=== PATIENT | female | born 1935 | race American Indian/Alaskan Native ===

== ENCOUNTER 2021-04-21 13:26 | Emergency (ER) | payer MEDICARE, OTHER ==
[~2021-04-21] VITALS: Ht 160 cm; Wt 108.9 kg
[~2021-04-21 13:26] MED LIST: ACETAMINOPHEN-1 EAC1 PO; ACTOS15 MG PO; ASPIR 8181 MG PO; DIALYVITE V5000 UNIT PO; FERROUS SULFAT325 MG PO; LASIX40 MG PO; LEVOTHROID100 MCG PO; LISINOPRIL5 MG PO; METFORMIN HCL1000 MG PO; POTASSIUM CHLO10 MEQ PO; SIMVASTATIN10 MG PO; SIMVASTATIN20 MG PO; [UNRECOGNIZED DRUG - OTHER] PO
[2021-04-21] MEDS ORDERED: K-TAB ER20 MEQ PO (14:08)
[2021-04-21] MEDS ORDERED: LISINOPRIL20 MG PO (14:09)
[2021-04-21] MEDS ORDERED: OCUVITE ADULT1 EAC1 PO (14:11)
--- NOTE | 2021-04-21 18:08 | EKG ---
[facility] [address] [facility] [place] [address] Signed Sinus rhythm with 1st degree AV block Left axis deviation Nonspecific intraventricular block Abnormal ECG No previous ECGs available Confirmed by VIRIDIANA BERGERON MD ([id number] on 04/21/2021 6:07:51 PM Electronically Signed By: VIRIDIANA BERGERON MD 04/21/21 1808 PATIENT NAME: CELIA DUMAS Electrocardiogram DATE OF : [birth year] PHYSICIAN: VIRIDIANA BERGERON MD REPORT #: [id number] REPORT IS CONFIDENTIAL AND NOT TO BE RELEASED WITHOUT AUTHORIZATION
--- NOTE | 2021-04-21 20:21 | EKG ---
[facility] [address] [facility] [place] [address] Signed Sinus rhythm with 1st degree AV block Left axis deviation Low voltage QRS Incomplete right bundle branch block Abnormal ECG When compared with ECG of 21-APR-2021 15:18, (Unconfirmed) Incomplete right bundle branch block has replaced Nonspecific intraventricular block Confirmed by VIRIDIANA BERGERON MD ([id number] on 04/21/2021 8:20:48 PM Electronically Signed By: VIRIDIANA BERGERON MD 04/21/212020 PATIENT NAME: CELIA DUMAS Electrocardiogram DATE OF : [birth year] PHYSICIAN: VIRIDIANA BERGERON MD REPORT #: [id number] REPORT IS CONFIDENTIAL AND NOT TO BE RELEASED WITHOUT AUTHORIZATION
== END 2021-04-21 18:05 | disposition short-term general hospital (02) ==
LOC: ED 13:26
DX: E87.5 Hyperkalemia (principal); N19 Unspecified kidney failure; E11.9 Type 2 diabetes mellitus without complications; E78.00 Pure hypercholesterolemia, unspecified; Z79.899 Other long term (current) drug therapy; Z79.84 Long term (current) use of oral hypoglycemic drugs; Z79.82 Long term (current) use of aspirin; Z20.822 Contact with and (suspected) exposure to COVID-19
CPT/HCPCS: 80053; 81001; 84132; 85025; 93005; 93010; 96374; 96375; 99285-25; C9803; J0610; J1815; J7040; U0003